=== PATIENT | female | born 2000 | race Caucasian/White ===

== ENCOUNTER 2021-01-18 03:55 | Emergency (ER) | payer OTHER, SELFPAY ==
[2021-01-18 03:56] VITALS: BP 143/109; PULSE 143; RESP 18; TEMP 36.1; O2SAT 99; BMI 35.6
--- NOTE | 2021-01-18 04:05 | EKG12_ITS ---
Test Reason : DYSRHYTHMIA Blood Pressure : / mmHG Vent. Rate : 133 BPM Atrial Rate : 133 BPM P-R Int : 132 ms QRS Dur : 082 ms QT Int : 310 ms P-R-T Axes : 053 080 034 degrees QTc Int : 461 ms Sinus tachycardia Otherwise normal ECG Confirmed by KEY GAMA, MELISSA ([id number]), video editor JANELL GOMEZ ([id number]) on 01/19/2021 6:54:41 AM Referred By: BRADFORD Confirmed By:MELISSA MACKEY MD
--- NOTE | 2021-01-18 04:05 | EX.ED.DYSGE1 ---
HPI History of Present Illness Chief Complaint: Anxiety Informant: patient and friend Narrative Narrative: Patient presents with what she describes as anxiety/panic attack. She has had anxiety and panic attacks before but they have not been this bad. She states the last 2 or 3 weeks have been very stressful. She has not been getting much sleep. She has been doing a lot of studying and work. She has a lot of anxiety. She did drink a lot of caffeine today. Her friend stated that she was drinking quite a bit of caffeine. She does not use drugs. She is not suicidal or homicidal. She states she has trouble focusing, feels her heart is racing and feels dyspnea. She has a little tightness across her chest. She has trouble sitting still. She has concern and fear. PFSH PFS Medical History Fracture of arm Medical History no medical history Home Medications CONTROL tab PO/SL DAILY 01/18/21 [History Last Taken Unknown] hydroxyzine pamoate [Vistaril] 25 mg PO TID PRN #14 cap 01/18/21 [Rx Last Taken Unknown] Allergy/AdvReac Type Severity Reaction Status Date / Time amoxicillin Allergy Anaphylaxis Verified 01/18/21 03:59 morphine Allergy Anaphylaxis Verified 01/18/21 03:59 Social History Smoking Status: Never smoker ROS ROS ED Constitutional Constitutional ED: Denies chills, fever(s) or sweats Eyes Eyes: Denies blurry vision, change in vision or diplopia ENT ENT ED: Denies rhinorrhea or sore throat Cardiovascular Cardiovascular: Reports chest pain, palpitations and racing heartbeat Respiratory/Chest Respiratory/Chest: Reports dyspnea and other Details: No hemoptysis or pleuritic pain. ; Denies cough or sputum Gastrointestinal Gastrointestinal: Denies nausea or vomiting Genitourinary Genitourinary ED: Denies dysuria Musculoskeletal Musculoskeletal: Denies myalgias Integumentary Denies rash Neurologic Neurologic: Reports paresthesias; Denies headache(s) or weakness Psychiatric Psychiatric: Reports anxiety Endocrine Endocrinology: Denies polydipsia or polyuria Allergic/Immunologic Allergic/Immunologic ED: Denies mouth swelling or urticaria EXAM Physical Exam Const Vital Signs: 11/11/21 03:56 Temperature 96.9 F L Temperature Source Temporal Pulse Rate 143 H Respiratory Rate 18 Blood Pressure 143/109 H Blood Pressure Mean 120 Pulse Ox 99 Oxygen Delivery Method Room Air Positive well nourished and well developed General Appearance ED: well developed; Negative for cyanotic or diaphoretic HEENT Negative for trauma or tenderness Eyes General Eye ED: Negative for pale conjunctiva or scleral icterus Neck no JVD Chest Wall inspection of chest normal Resp normal respiratory effort and clear to auscultation bilaterally Effort and Inspection: Negative for pain with movement Auscultation: Negative for rales, rhonchi or wheezes Cardio regular rhythm Rate: tachycardic GI normal to inspection, nondistended, normoactive bowel sounds and non-tender Palpation: soft Back/Spine no CVA tenderness Extremity normal to inspection General Extremety ED: Negative for edema or tenderness General Extremity: Negative for edema Neuro oriented x3 Sensorium / Orientation: alert Psych Psych Narrative: Patient does feel little shaky. She has little trouble sitting still. She is breathing quickly and deeply. Mood & Affect: anxious Skin no rashes or lesions noted MDM MDM MDM Narrative Medical decision making narrative: 04: 50 patient was feeling better. Anxiety is less. She looks more relaxed. Heart rate is running 90-105 now. 05: 10 patient is texting on her phone. She is relaxed. She feels much better. We discussed trying to increase sleep and decrease caffeine. I will write for some Vistaril as an option. [facility] and I will give her a reference to primary physician also. If she develops pain, dyspnea or other issues she may need to return. Her saturations are normal, heart rate is normal, respiratory rate is normal. No leg swelling or pain. No pleuritic pain no cough. EKG Initial EKG: Comments: EKG done due to palpitations read by me showed sinus rhythm with tachycardic rate at 133. No ventricular ectopy. W[place] interval, QRS duration and QTc normal. No acute ST elevation or depression. Discharge Plan Triage Chief Complaint: Anxiety ED Provider: Silvano Wen Dx/Rx/DC Orders Clinical Impression: Panic attack Instructions: ED Panic Attack Prescriptions: New hydroxyzine pamoate [Vistaril] 25 mg capsule 25 mg PO TID PRN (Reason: anxiety) Qty: 14 RF: 0 No Action CONTROL PO/SL DAILY RF: 0 Primary Care Provider: Molina Lind Referrals: Molina Lind DO [Primary Care Provider] - 3-5 Days if not improving NOT,DEFINED [NON-STAFF] - Disposition Disposition: Home, Self Care
[2021-01-18] MEDS: LORazepam 2 MG/ML Syringe 1 MG IM (04:12)
[2021-01-18 05:32] VITALS: BP 135/81; PULSE 80; RESP 18; O2SAT 99
== END 2021-01-18 05:32 | disposition home or self-care (01) ==
PROVIDERS: Emergency Provider Emergency Medicine; PCP Family Medicine
DX: F41.0 Panic disorder [episodic paroxysmal anxiety] (principal)
CPT/HCPCS: 93005; 96372; 99282